=== PATIENT | female | born 1960 | race Caucasian/White ===

== ENCOUNTER → 2017-10-21 | Outpatient (CLI) | payer OTHER ==
[~2017-10-21] MED LIST: ASPIR 8181 M1 PO; CALTRATE 600 +1 EAC1 PO; COLCRYS0.6 MG PO; ESTROVEN 155 M155 MG PO; FISH OIL 1,0001 EAC7 PO; GLIPIZIDE5 MG PO; GLUCOPHAGE500 MG PO; JARDIANCE25 MG PO; LEVOTHYROXINE75 MCG PO; LISINOPRIL-HCT1 EAC3 PO; PLAQUENIL200 MG PO; PRAVACHOL20 MG PO; RANITIDINE HCL150 MG PO; SPIRIVA RESPIMAT4 G1 IH; VITAMIN D-32000 UNI2 PO; WOMEN'S DAILY1 EAC4 PO; ZOFRAN ODT4 MG PO
== END | disposition home or self-care (01) ==
LOC: NUC 09:48
DX: R10.13 Epigastric pain (principal)
CPT/HCPCS: 78227; A9537; J2805